=== PATIENT | male | born 1940 | race African-American/Black ===

== ENCOUNTER 2019-02-20 01:38 | Inpatient (IN) | payer MEDICARE, OTHER ==
[~2019-02-20] VITALS: Ht 167.6 cm; Wt 74.4 kg
[2019-02-20] MEDS ORDERED: ASPIRIN 81 MG TAB.CHEW PO ONE (01:45)
--- NOTE | 2019-02-20 02:05 | PHYS DOC ---
Past History Past Medical History: CAD Smoking: Quit Greater Than 1 Year Alcohol Use: None Drug Use: None Adult General HPI HPI Patient is a 78-year-old male presents with chest and left back pain that woke him up from sleep. [place] like somebody slammed him with a hammer. This is similar pain to when he had an heart attack in the late 1980s. No pain with breathing. No new swelling in legs feet or ankles. No radiation of the discomfort. No nausea or vomiting, no diaphoresis.[] Review of Systems Review of Systems Constitutional: Denies fever or chills [] Eyes: Denies change in visual acuity, redness, or eye pain [] HENT: Denies nasal congestion or sore throat [] Respiratory: Denies cough or shortness of breath [] Cardiovascular: No additional information not addressed in HPI [] GI: Denies abdominal pain, nausea, vomiting, bloody stools or diarrhea [] : Denies dysuria or hematuria [] Musculoskeletal: Denies back pain or joint pain [] Integument: Denies rash or skin lesions [] Neurologic: Denies headache, focal weakness or sensory changes [] Endocrine: Denies polyuria or polydipsia [] All other systems were reviewed and found to be within normal limits, except as documented in this note. Current Medications Current Medications Current Medications Medications (Trade) Dose Ordered Sig/Jacki Start Time Stop Time Status Last Admin Dose Admin Aspirin (Children'S Aspirin) 324 mg 1X ONCE 02/20/19 01:45 02/20/19 01:46 UNV Physical Exam Physical Exam Constitutional: Well developed, well nourished, no acute distress, non-toxic appearance. [] HENT: Normocephalic, atraumatic, bilateral external ears normal, oropharynx moist, no oral exudates, nose normal. [] Eyes: PERRLA, EOMI, conjunctiva normal, no discharge. [] Neck: Normal range of motion, no tenderness, supple, no stridor. [] Cardiovascular:Heart rate regular rhythm, no murmur [] Lungs & Thorax: Bilateral breath sounds clear to auscultation [] Abdomen: Bowel sounds normal, soft, no tenderness, no masses, no pulsatile masses. [] Skin: Warm, dry, no erythema, no rash. [] Back: No tenderness, no CVA tenderness. [] Extremities: No tenderness, no cyanosis, no clubbing, ROM intact, no edema. [] Neurologic: Alert and oriented X 3, normal motor function, normal sensory function, no focal deficits noted. [] Psychologic: Affect normal, judgement normal, mood normal. [] EKG EKG EKG shows a sinus rhythm at 50 bpm, normal axis, QTC of 389 ms.[] Radiology/Procedures Radiology/Procedures Chest x-ray shows no infiltrate, no effusion, no pneumothorax[] Course & Med Decision Making Course & Med Decision Making Pertinent Labs and Imaging studies reviewed. (See chart for details) ED course: Patient arrived, was placed in bed, and tolerated exam well. He was given aspirin in the emergency department. He had no worsening of his chest pain. Consultation was made with the hospitalist for further evaluation and treatment. Medical decision makin-year-old male with chest in back pain similar to previous heart attack. He has a heart score of 4. First set of cardiac enzymes are negative. Admitting him for further evaluation and treatment. There is no evidence of pneumonia, pneumothorax, pulmonary embolism, dissecting thoracic aneurysm, nor esophageal rupture.[] Dragon Disclaimer Dragon Disclaimer This electronic medical record was generated, in whole or in part, using a voice recognition dictation system. Departure Departure: Impression: Primary Impression: Chest pain Disposition: ADMITTED INPATIENT Admitting Physician: Armando Rosario Condition: IMPROVED Referrals: HUGO FLETCHER DO (PCP) HEART Score for Chest Pain PTs The HEART Score for CP Pts HEART Score for Chest Pain: HEART Score for Chest Pain Response (Comments) Value History Moderately Suspicious 1 ECG Normal 0 Age > 65 2 Risk Factors 1 or 2 Risk Factors (hypertension and hi story of coronary disease) 1 Troponin < Normal Limit 0 Total 4 Risk Factors: Risk Factors: DM, Current or recent (<one month) smoker, HTN, HLP, family history of CAD, obesity. Risk Scores: Score 0 - 3: 2.5% MACE over next 6 weeks - Discharge Home Score 4 - 6: 20.3% MACE over next 6 weeks - Admit for Clinical Observation Score 7 - 10: 72.7% MACE over next 6 weeks - Early Invasive Strategies Problem Qualifiers Primary Impression: Chest pain Chest pain type: unspecified Qualified Codes: R07.9 - Chest pain, unspecified FELIPE RAZA DO Feb 20, 2019 02:05
[2019-02-20 02:34] LABS: BASO % 1 % (0-3); EOS # 0.1 x10^3/uL (0.0-0.7); EOS % 3 % (0-3); HEMATOCRIT 45.2 % (39.0-53.0); HEMOGLOBIN 15.3 g/dL (13.0-17.5); LYMPH # 2.3 x10^3/uL (1.0-4.8); LYMPH % 58 % (24-48); MEAN CORPUSCULAR HEMOGLOBIN 31 pg (25-35); MEAN CORPUSCULAR HGB CONC 34 g/dL (31-37); MEAN CORPUSCULAR VOLUME 93 fL (79-100); MONO # 0.3 x10^3/uL (0.0-1.1); MONO % 9 % (0-9); NEUT # 1.1 x10^3uL (1.8-7.7); NEUT % 29 % (31-73); PLATELET COUNT 196 x10^3/uL (140-400); RED BLOOD COUNT 4.86 x10^6/uL (4.30-5.70); RED CELL DISTRIBUTION WIDTH 13.1 % (11.5-14.5); WHITE BLOOD COUNT 3.9 x10^3/uL (4.0-11.0)
[2019-02-20 02:39] LABS: ALBUMIN 3.9 g/dL (3.4-5.0); ALBUMIN/GLOBULIN RATIO 1.2 (1.0-1.7); CALCIUM 9.4 mg/dL (8.5-10.1); CREATININE 1.5 mg/dL (0.7-1.3); GFR 54.5; MAGNESIUM 1.8 mg/dL (1.8-2.4); POTASSIUM 4.3 mmol/L (3.5-5.1); TOTAL BILIRUBIN 0.6 mg/dL (0.2-1.0); TOTAL PROTEIN 7.1 g/dL (6.4-8.2)
[2019-02-20] MEDS ORDERED: ACETAMINOPHEN 325 MG TABLET PO PRN (03:00)
[2019-02-20] MEDS ORDERED: NITROGLYCERIN SUBLINGUAL 0.4 MG BOTTLE OF 25. SL PRN (03:00)
[2019-02-20] MEDS ORDERED: ONDANSETRON PF 4 MG/2 ML VIAL. IV PRN (03:00)
--- NOTE | 2019-02-20 03:18 | EKG ---
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
[2019-02-20 04:47] VITALS: BP 165/65
--- NOTE | 2019-02-20 06:30 | RAD ---
AP chest. HISTORY: Chest and back pain AP view was taken of the chest. There are no acute infiltrates. Heart is normal in size. There is no pleural effusion. IMPRESSION: 1. No acute infiltrates. Electronically signed by: Antonio Cruz MD (02/20/2019 6:27 AM) [facility]
[2019-02-20] MEDS ORDERED: CLOP75TA57 PO (07:33)
[2019-02-20] MEDS ORDERED: CARB1TAB2 PO (07:33)
[2019-02-20] MEDS ORDERED: CHOL10003 PO (07:33)
[2019-02-20] MEDS ORDERED: ASPI-630 PO (07:42)
[2019-02-20] MEDS ORDERED: SIMV80TA17 PO (07:42)
[2019-02-20] MEDS ORDERED: DONE10TA7 PO (07:42)
[2019-02-20] MEDS ORDERED: AMLO10TA8 PO (07:42)
--- NOTE | 2019-02-20 08:11 | PDOC2 ---
CARDIAC CONSULT DATE OF CONSULT Date Of Consult DATE: 02/20/19 TIME: 08:08 REASON FOR CONSULT Reason for Consult Chest pain REFERRING PHYSICIAN Referring Physician Dr. Marcano SOURCE Source: Chart review, Patient HPI History of Present Illness This is an 78 yo male who presented secondary to chest pain. Patient reports he awoke from dreaming early this morning due to pain in is upper back. [place] as if someone had took a sledge hammer to his upper back. Was associated with some mild nausea and dizziness. No chest pain, palpitations, diaphoresis, or shortness of breath. Patient reports he remembers pain to be very similar to what he experience back in 1979 when he had an [place]. Was seen at the [facility] during this time, underwent stress testing at this time which he thinks was normal. No cardiac catheterization was performed. Patient was concerned that he could be having a heart attack so he came for further evaluation and treatment. Pain lasted about 10 minutes and resolved without intervention. No further pain since. No h/0 CAD. Has had multiple stress tests in the past. Most recent about 2 years ago at the [facility]. No prior cardiac catheterization. No recent chest pain upon exertion or GUTIERRES. PAST MEDICAL HISTORY Past Medical History Parkinson's Disease Cardiovascular: HTN, FL, hyperipidemia CENTRAL NERVOUS SYSTEM: TIA Musculoskeletal: low back pain (Chronic), Osteoarthritis Rheumatologic: Gout PAST SURGICAL HISTORY Past Surgical History: Tonsillectomy FAMILY HISTORY Family History: Cancer (breast ), Hypertension, Stroke SOCIAL HISTORY Smoke: Quit (10 years ago ) ALCOHOL: none Drugs: None Lives: with Family CURRENT MEDICATIONS Current Medications Current Medications Aspirin (Children'S Aspirin) 324 mg 1X ONCE PO Last administered on 02/20/19at 02:23; Start 02/20/19 at 01:45; Stop 02/20/19 at 02:27; Status DC Ondansetron HCl (Zofran) 4 mg PRN Q4HRS PRN IV NAUSEA/VOMITING; Start 02/20/19 at 03:00; Stop 02/21/19 at 02:59 Acetaminophen (Tylenol) 650 mg PRN Q4HRS PRN PO FEVER; Start 02/20/19 at 03:00; Stop 02/21/19 at 02:59 Nitroglycerin (Nitrostat) 0.4 mg PRN Q5MIN PRN SL CHEST PAIN; Start 02/20/19 at 03:00; Stop 02/21/19 at 02:59 Active Scripts Active Reported Aspirin 81 Mg Tab.chew 81 Mg PO DAILY Amlodipine Besylate 10 Mg Tablet 1 Tab PO DAILY Donepezil Hcl 10 Mg Tablet 1 Tab PO DAILY Simvastatin 80 Mg Tablet 1 Tab PO QHS Vitamin D3 (Cholecalciferol (Vitamin D3)) 1,000 Unit Tablet 1 Tab PO DAILY Plavix (Clopidogrel Bisulfate) 75 Mg Tablet 1 Tab PO DAILY Sinemet 25-100 Mg Tablet (Carbidopa/Levodopa) 1 Each Tablet 1 Tab PO TID ALLERGIES Allergies: Coded Allergies: No Known Drug Allergies (Unverified , 02/20/19) ROS Review of Systems 14 point ROS conducted with pertinent positives noted above in HPI. PHYSICAL EXAM General: Alert, Oriented X3, Cooperative, No acute distress HEENT: Atraumatic, Mucous membr. moist/pink Lungs: Clear to auscultation, Normal air movement Heart: Regular rate, Normal S1, Normal S2 Abdomen: Soft, No tenderness Extremities: No edema, Normal pulses Skin: No breakdown Neuro: Normal speech, Sensation intact Psych/Mental Status: Mental status NL, Mood NL MUSCULOSKELETAL: Osteoarthritic changes both hands VITALS Vital Signs Vital Signs Date Time Temp Pulse Resp B/P (MAP) Pulse Ox O2 Delivery O2 Flow Rate FiO2 02/20/19 04:48 Room Air 02/20/19 04:47 97.8 46 16 165/65 (98) 98 LABS LABS Laboratory Tests Test 02/20/19 02:01 02/20/19 06:18 White Blood Count 3.9 x10^3/uL (4.0-11.0) Red Blood Count 4.86 x10^6/uL (4.30-5.70) Hemoglobin 15.3 g/dL (13.0-17.5) Hematocrit 45.2 % (39.0-53.0) Mean Corpuscular Volume 93 fL (79-100) Mean Corpuscular Hemoglobin 31 pg (25-35) Mean Corpuscular Hemoglobin Concent 34 g/dL (31-37) Red Cell Distribution Width 13.1 % (11.5-14.5) Platelet Count 196 x10^3/uL (140-400) Neutrophils (%) (Auto) 29 % (31-73) Lymphocytes (%) (Auto) 58 % (24-48) Monocytes (%) (Auto) 9 % (0-9) Eosinophils (%) (Auto) 3 % (0-3) Basophils (%) (Auto) 1 % (0-3) Neutrophils # (Auto) 1.1 x10^3uL (1.8-7.7) Lymphocytes # (Auto) 2.3 x10^3/uL (1.0-4.8) Monocytes # (Auto) 0.3 x10^3/uL (0.0-1.1) Eosinophils # (Auto) 0.1 x10^3/uL (0.0-0.7) Basophils # (Auto) 0.0 x10^3/uL (0.0-0.2) Prothrombin Time 10.4 SEC (9.4-11.4) Prothromb Time International Ratio 1.0 (0.9-1.1) Activated Partial Thromboplast Time 26 SEC (23-33) Sodium Level 145 mmol/L (136-145) Potassium Level 4.3 mmol/L (3.5-5.1) Chloride Level 106 mmol/L (98-107) Carbon Dioxide Level 30 mmol/L (21-32) Anion Gap 9 (6-14) Blood Urea Nitrogen 13 mg/dL (8-26) Creatinine 1.5 mg/dL (0.7-1.3) Estimated GFR (Cockcroft-Gault) 54.5 BUN/Creatinine Ratio 9 (6-20) Glucose Level 113 mg/dL (70-99) Calcium Level 9.4 mg/dL (8.5-10.1) Magnesium Level 1.8 mg/dL (1.8-2.4) Total Bilirubin 0.6 mg/dL (0.2-1.0) Aspartate Amino Transf (AST/SGOT) 19 U/L (15-37) Alanine Aminotransferase (ALT/SGPT) 7 U/L (16-63) Alkaline Phosphatase 117 U/L (46-116) Troponin I Quantitative 0.019 ng/mL (0-0.055) < 0.017 ng/mL (0-0.055) QG-Yyk-Y-Type Natriuretic Peptide 51 pg/mL (0-449) Total Protein 7.1 g/dL (6.4-8.2) Albumin 3.9 g/dL (3.4-5.0) Albumin/Globulin Ratio 1.2 (1.0-1.7) Lipase 121 U/L (73-393) ASSESSMENT/PLAN Assessment/Plan 1. Chest pain, atypical; AMI ruled out. EKG without significant acute changes. 2. Hypertension; mildly elevated 3. Hyperlipidemia; statin 4. Chronic back pain, lower. 5. Parkinson's Disease 6. ? CKD 7. H/o TIA Recommendations ASA Resume home antiHTN therapy. Lipid panel Echo to assess LV systolic function If echo WNL, may discharge from a CV standpoint and will arrange for outpatient stress testing and followup. YAMIL PORTILLO APRN Feb 20, 2019 08:11
[2019-02-20] MEDS ORDERED: CHOLECALCIFEROL (VITAMIN D3) 1,000 UNIT TABLET PO SCH (09:00)
[2019-02-20] MEDS ORDERED: DONEPEZIL HCL 10 MG TABLET PO SCH (09:00)
[2019-02-20] MEDS ORDERED: amLODIPine BESYLATE 10 MG TABLET PO SCH (09:00)
[2019-02-20] MEDS ORDERED: CLOPIDOGREL BISULFATE 75 MG TABLET PO SCH (09:00)
[2019-02-20 11:24] VITALS: BP 136/77
[2019-02-20] MEDS: CARBIDOPA/LEVODOPA 25/100MG TABLET PO SCH ×2 (12:08→15:34)
[2019-02-20 12:09] VITALS: BP 136/77
--- NOTE | 2019-02-20 13:21 | CARD ---
MR#: [id number] Date of Study: 02/20/2019 Ordering Physician: YAMIL PORTILLO, Referring Physician: YAMIL PORTILLO, Tech: Marlys Nina ELIZABETH APPROVED REPORT EXAM: Two-dimensional and M-mode echocardiogram with Doppler and color Doppler. Other Information Quality : Good Rhythm : Bradycardia INDICATION Chest Pain 2D DIMENSIONS RVDd2.2 (2.9-3.5cm)Left Atrium(2D)2.6 (1.6-4.0cm) IVSd1.2 (0.7-1.1cm)Aortic Root(2D)2.8 (2.0-3.7cm) LVDd4.2 (3.9-5.9cm)LVOT Diameter1.9 (1.8-2.4cm) PWd0.7 (0.7-1.1cm)LVDs2.9 (2.5-4.0cm) Aortic Valve AoV Peak Milton.140.0cm/sAoV RPM185.0cm AO Peak GR.8.0mmHgLVOT Peak [place].100.0cm/s LVOT VTI 208.00cmAO Mean GR.4mmHg TOÑITO (VTI)1.90cm2 Tricuspid Valve TR P. Lohodaez679jw/sRAP AJXQKDYA6gbRl TR Peak Gr.44usHyAUXJ52quJo LEFT VENTRICLE The left ventricle is normal size. There is mild asymmetric septal hypertrophy. The left ventricular systolic function is normal and the ejection fraction is within normal range. The Ejection Fraction i s 55-60%. There is normal LV segmental wall motion. Tissue Doppler imaging reveals mild left ventricu lar diastolic dysfunction. No left ventricle thrombus noted on this study. RIGHT VENTRICLE The right ventricle is normal size. The right ventricular systolic function is normal. ATRIA The left atrium size is normal. The right atrium size is normal. The interatrial septum is intact wit h no evidence for an atrial septal defect or patent foramen ovale as noted on 2-D or Doppler imaging. AORTIC VALVE The aortic valve is moderately thickened with restricted leaflet motion. Doppler and Color Flow revea led no significant aortic regurgitation. There is no significant aortic valvular stenosis. MITRAL VALVE The mitral valve is calcified but opens well. There is no evidence of mitral valve prolapse. There is no mitral valve stenosis. Doppler and Color-flow revealed trace to mild mitral regurgitation. TRICUSPID VALVE The tricuspid valve is normal in structure and function. Doppler and Color Flow revealed trace tricus pid regurgitation. The PA pressure was estimated at 30 mmHg. There is no tricuspid valve stenosis. PULMONIC VALVE The pulmonic valve is not well visualized. Doppler and Color Flow revealed trace to mild pulmonic shannan vular regurgitation. There is no pulmonic valvular stenosis. GREAT VESSELS The aortic root is normal in size. The ascending aorta is normal in size. The IVC is normal in size a nd collapses >50% with inspiration. PERICARDIAL EFFUSION There is no evidence of significant pericardial effusion. Critical Notification Critical Value: No <Conclusion> The left ventricular systolic function is normal and the ejection fraction is within normal range. Th e Ejection Fraction is 55-60%. There is normal LV segmental wall motion. Signed by : Wan Shirley, Electronically Approved : 02/20/2019 13:21:03
--- NOTE | 2019-02-20 15:09 | SSS ---
ADMIT DATE: 02/20/2019 HISTORY OF PRESENT ILLNESS: The patient is an 78-year-old -[place] male patient who normally follows at the [facility], who came to the Emergency Room complaining of pain in his upper back, felt as if someone had taken a sledgehammer to his upper back and the pain was associated with some mild nausea and dizziness, no chest pain, no palpitation, no diaphoresis, no shortness of breath. The patient reports that he remembers pain to be very similar to what he experienced back in 1979 when he had an [place], was seen at the [facility] at that time, underwent stress testing at this time, which he thinks was normal. No cardiac catheterization was performed. The patient was concerned that he could be having a heart attack, so he came for further evaluation and treatment. His pain lasted about 10 minutes and resolved without intervention. By the time he arrived to the Emergency Room, the pain has completely subsided. The patient has no history of coronary artery disease, has had multiple stress testing in the past, most recent about 2 years ago at the [facility]. No prior cardiac catheterization. No recent history of chest pain upon exertion. No dyspnea on exertion. He was evaluated in the Emergency Room, was admitted and first set of cardiac enzyme was less than 0.017. The patient was admitted to check his 2 more sets of cardiac enzymes, check his fasting lipid profile and consult the metal sash setter. PAST MEDICAL HISTORY: Significant for hypertension, hyperlipidemia, Parkinson's disease, chronic low back pain, osteoarthritis and gout. PAST SURGICAL HISTORY: Significant for tonsillectomy and perirectal abscess, it was incised and drained. FAMILY HISTORY: Significant for the fact that 2 of his brothers and his father of cerebrovascular accident. His mother of breast cancer at the age of 83. His younger sister at the age of 63 because of renal cell carcinoma and 2 of his sisters of cerebrovascular accident, has 1 younger brother who is 76 years old and apparently healthy. SOCIAL HISTORY: He is , lives alone. His daughter and grandchildren also have . He quit smoking years ago. He does not drink alcohol. 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 PHYSICAL EXAMINATION: GENERAL: On arrival to the Emergency Room, he looked well and was clearly in no apparent respiratory distress. No pallor, jaundice, cyanosis from thyromegaly and no jugular venous distention. No lower limb edema. VITAL SIGNS: His heart rate on arrival was 57, blood pressure 165/65, temperature was 97.8, respiratory rate was 16, and oxygen saturation was 98%. HEAD, EYES, EARS, NOSE AND THROAT: Showed normocephalic, atraumatic. NECK: Supple. HEART: Showed normal first and second heart sounds with no gallop, rub or murmur. CHEST: Clear to auscultation. No crepitation or rhonchi. ABDOMEN: Distended, soft, nontender. No guarding or rigidity. No organomegaly. All hernial orifices intact. Bowel sounds normal. NEUROLOGIC: He was awake, alert, responding appropriately. All cranial nerves intact. EXTREMITIES: He moves extremities without difficulty, ambulates without assistance or assistive devices. LABORATORY DATA: His lab work showed a serum sodium of 145, potassium 4.3, chloride 106, bicarbonate 30, anion gap of 9, BUN 13, creatinine 1.5, estimated GFR was 54 mL per minute, his glucose 113, calcium was 9.4, magnesium was 1.8. Total bilirubin, AST, ALT, alkaline phosphatase were normal. His troponin showed that his first troponin was less than 0.019. Second was less than 0.017. Third was less than 0.017. His total protein was 7.1, albumin 3.9. Lipase was normal. His fasting lipid profile 157, total cholesterol was 123, LDL cholesterol was 52, VLDL was 31, and HDL cholesterol was 40 and cholesterol to HDL cholesterol ratio was 3. Has had a chest x-ray, which showed that there is no acute infiltrate. He was seen by the Cardiology team and has had an echocardiogram done, which showed that his left ventricular systolic function is normal, ejection fraction is within normal range. Ejection fraction is 55-60%. There is normal left ventricular segmental wall motion. He has 3 sets of cardiac enzymes that were normal. Normal echocardiogram and as recommended by the Cardiology team, the patient can safely be discharged for outpatient stress testing and followup. He was discharged to continue on following medications: Aricept 10 mg at bedtime, Plavix 75 mg once a day, simvastatin 80 mg at bedtime, amlodipine 10 mg at bedtime, aspirin 81 mg once a day, carbidopa/levodopa 1 tablet 3 times a day, and cholecalciferol 1000 International Units once a day. FINAL DISCHARGE DIAGNOSES: 1. Atypical chest pain, myocardial infarction is ruled out. 2. Hypertension, seems to be reasonably controlled. Hyperlipidemia, on statin. Chronic back pain, Parkinson's disease, possible chronic kidney disease. ITZ MACHADO MD DR: GAEL/lee JOB#: [id number] / [id number]
--- NOTE | 2019-02-20 15:53 | NUR ---
NSG NOTE; DISCHARGE VERBAL AND WRITTEN DISCHARGE INSTRUCTIONS GIVEN TO PT WITH VERBAL UNDERSTANDING DISCHARGED TO HOME AT 1548 VIA W/C ACCOMP BY FRIEND
[2019-02-20] MEDS ORDERED: SIMVASTATIN PO SCH (21:00)
[2019-02-20] MEDS ORDERED: ATORVASTATIN CALCIUM 20 MG TABLET PO SCH (21:00)
[2019-02-21] MEDS ORDERED: ASPIRIN ENTERIC COATED 81 MG TABLET.DR. PO SCH (08:00)
== END 2019-02-20 15:45 | disposition home or self-care (01) | DRG 313 ==
LOC: ER 01:38 → 1 SOUTH 02:53
PROVIDERS: ADMIT Hospitalist; ATTEND Internal Medicine
DX: R07.89 Other chest pain (principal); I25.10 Atherosclerotic heart disease of native coronary artery without angina pectoris; E78.5 Hyperlipidemia, unspecified; G20 Parkinson's disease; G89.29 Other chronic pain; M19.90 Unspecified osteoarthritis, unspecified site; M10.9 Gout, unspecified; N18.9 Chronic kidney disease, unspecified; I12.9 Hypertensive chronic kidney disease with stage 1 through stage 4 chronic kidney disease, or unspecified chronic kidney disease; Z87.891 Personal history of nicotine dependence; Z86.73 Personal history of transient ischemic attack (TIA), and cerebral infarction without residual deficits; Z82.49 Family history of ischemic heart disease and other diseases of the circulatory system; I25.2 Old myocardial infarction; Z82.3 Family history of stroke; Z80.51 Family history of malignant neoplasm of kidney; Z80.3 Family history of malignant neoplasm of breast
CPT/HCPCS: 36415; 71045; 80053; 80061; 83690; 83735; 83880; 84484; 85025; 85610; 85730; 93005; 93306; 99285-25

== ENCOUNTER → 2019-03-29 | Outpatient (CLI) | payer OTHER, MEDICARE ==
[~2019-03-29] MED LIST: AMLO10TA8 PO; ASPI-630 PO; CARB1TAB2 PO; CHOL10003 PO; CLOP75TA57 PO; DONE10TA7 PO; REGADENOSON 0.4 MG/5 ML DISP.SYRIN. IV ONE; SIMV80TA17 PO
--- NOTE | 2019-04-02 11:23 | RAD ---
MR#: [id number] Date of Study: 03/29/2019 Ordering Physician: NOEMY NOEL, Referring Physician: MAURICE RAMSAY Tech: GERARDO Sims APPROVED REPORT Test Type: Pharmacological Stress Nurse/Tech: GERARDO Sims Test Indications: Dyspnea Cardiac History: [place] 1987 Medications: SEE EHR Medical History: SEE EHR Resting ECG: SR Resting Heart Rate: 57 bpm Resting Blood Pressure: 147/64mmHg Pretest Chest Pain: None Nurse/Tech Notes Consent: The procedure was explained to the patient in lay terms. Informed consent was witnessed. Jairon eout was entered into [employer]. History and Stress Test performed by GERARDO [employer]. Details Pharmacologic stress testing was performed using 0.4mg per 5ml of regadenoson given intravenously ove r 7-10 seconds. POST EXERCISE Reason for Termination: Infusion complete Max HR: 91 bpm Max Blood Pressure: 137/55mmHg Blood Pressure response to exercise: Normal blood pressure response during stress. INTERPRETATION Stress EKG Conclusion: Baseline EKG showed sinus rhythm. Non-diagnostic changes at peak stress. No arrhythmias. Imaging Protocol IMAGE PROTOCOL: Rest Tc-99m/stress Tc-99m 1 day Rest: Stress: Viability: Radiopharm.Tc99m BcrrsnfpgQr07l Sestamibi Qqnh81jYc 33mCi Duration 15min. 10min. Img Date 03/29/2019 03/29/2019 Inj-Img Irep60krd. 60min. Rest Admin Site:IV - Left AntecubitalAdministrator: GERARDO Sims Stress Admin Site: IV - Left AntecubitalAdministrator: GERARDO Sims STRESS DATA End Diast. Vol.49.0mlAv. Heart Rate61.0bpm End Syst. Vol.13.0mlCO Index BSA0.0L/min Myocardial Mass95.0gEject. Uvkbmgbf08.0% Stress Rates Pk. Fill Rate2.88EDV/secLVtime Pk. Fill 315.42msec Pk. Empty Rate4.40ESV/secLVtime Pk. Hraly180.45msec 1/3 Pk. Fill1.10EDV/sec Stress Scores Regional WT2.00Summed WT9.00 Regional WM0.00Summed WM2.00 Study quality was good. Left Ventricular size was Normal at Rest and Stress. Lung uptake was . Left Ventricular ejection fraction is 73%. The rest and stress images show normal perfusion, normal contraction and thickening. LV Perf. Quant 17 Seg. SSS0.00 17 Seg. SRS0.00 17 Seg. SDS0.00 Stress Defect Extent (% LAD)0.00Rest Defect Extent (% LAD)0.00Rev. Defect Extent (% LAD)0.00 Stress Defect Extent (% LCX) 0.00Rest Defect Extent (% LCX)0.00Rev. Defect Extent (% LCX)0.00 Stress Defect Extent (% RCA)0.00Rest Defect Extent (% RCA)0.00Rev. Defect Extent (% RCA)0.00 Stress Defect Extent (% YURI)0.00Rest Defect Extent (% YURI)0.00Rev. Defect Extent (% YURI)0.00 Conclusion 1. Regadenoson cardioisotope stress test did not show any evidence of ischemia or infarct. 2. Normal left ventricular systolic function with ejection fraction calculated at 73%. 3. Low risk for cardiac events. Signed by : Joshua Garcia, Electronically Approved : 03/29/2019 13:07:27
== END | disposition home or self-care (01) ==
LOC: NM 08:02
PROVIDERS: ATTEND Internal Medicine Cardiovascular Disease
DX: R06.00 Dyspnea, unspecified (principal)
CPT/HCPCS: 78452; 93017; A9500; J2785